=== PATIENT | female | born 1940 | race African-American/Black ===

== ENCOUNTER 2022-09-02 12:19 | Inpatient (IN) | payer OTHER ==
[2022-09-02 13:00] LABS: Hemoglobin 11.8 g/dL (12.0-16.0); Mean Corpuscular HGB CONC 31.1 g/dL (32.0-36.0); Mean Corpuscular Volume 99.7 fl (78.0-98.0); Platelet Count 145 thou/uL (130-400); RBC Distribution Width 13.1 % (11.5-14.5); Red Blood Cell (RBC) Count 3.81 mill/uL (4.20-5.40); White Blood Cell (WBC) Count 9.8 thou/uL (4.8-10.8)
[2022-09-02] MEDS ORDERED: Tenecteplase 50 MG - STEMI KIT ONE (13:18)
[2022-09-02 13:19] LABS: Band 2 % (5-11); Lymphocytes 6 % (21-51); MDiff Complete? YES; Monocytes 12 % (0-10); Neutrophil 79 % (42-75); Platelet Morphology Comment Appears Adequate; RBC Morphology Normal; Reactive Lymphocytes 1 % (0-10)
[2022-09-02 13:21] LABS: ALT (SGPT) 10 U/L (8-55); AST (SGOT) 22 U/L (5-34); Albumin 3.7 g/dL (3.4-4.8); Alkaline Phosphatase 65 U/L (40-110); Anion Gap 14 mmol/L (10-20); BUN (Urea Nitrogen) 29 mg/dL (9.8-20.1); Bilirubin, Total 0.6 mg/dL (0.2-1.2); CK (CPK) 82 U/L (29-168); Calc. Creatinine Clearance 0 mL/min (70-130); Calcium 9.7 mg/dL (7.8-10.44); Carbon Dioxide 24 mmol/L (23-31); Chloride 102 mmol/L (98-107); Estimated GFR 39; Globulin 3.4 g/dL (2.4-3.5); Glucose 112 mg/dL (83-110); Lipase 24 U/L (8-78); Potassium 5.4 mmol/L (3.5-5.1); Protein, Total 7.1 g/dL (5.8-8.1); Sodium 135 mmol/L (136-145)
[2022-09-02 13:51] LABS: CKMB 1.9 ng/mL (0-6.6)
[2022-09-02] MEDS ORDERED: Iopamidol-370 76% 500 ML 1 ML ONE (14:26)
[2022-09-02 14:52] LABS: INR-International Normal Ratio 1.1; PTT 29.1 sec (22.9-36.1); Prothrombin Time 15.1 sec (12.0-14.7)
[2022-09-02 14:57] LABS: Magnesium 1.7 mg/dL (1.6-2.6); Phosphorus 3.1 mg/dL (2.3-4.7)
[2022-09-02] MEDS: Sodium Chloride 0.9% 1,000 ML IV SCH (15:45)
[2022-09-02] MEDS ORDERED: Electrolyte Replacement Protocol 1 EACH FS SCH (15:45)
[2022-09-02] MEDS ORDERED: Senokot S 8.6-50 MG TAB PO PRN (16:32)
[2022-09-02] MEDS ORDERED: Acetaminophen 325 MG TAB PO PRN (16:32)
[2022-09-02] MEDS ORDERED: Ondansetron ODT 4 MG TAB PO PRN (16:32)
[2022-09-02] MEDS ORDERED: Ondansetron PF 4 MG/2 ML Vial IVP PRN (16:32)
[2022-09-02 16:33] VITALS: BMI 33.1
[2022-09-02] MEDS ORDERED: Labetalol HCl 100 MG/20 ML VIAL SLOW IVP PRN (16:36)
[2022-09-02] MEDS ORDERED: niCARdipine 25 MG in Sodium Chloride 0.9% 250 ML 250 ML IVPB PRN (16:36)
[2022-09-02] MEDS ORDERED: hydrALAZINE 20 MG/ML VIAL SLOW IVP PRN (16:36)
[2022-09-02] MEDS ORDERED: Acetaminophen 650 MG Suppository PR PRN (16:36)
[2022-09-02] MEDS ORDERED: Communication Order-Pharmacy FS ONE (16:36)
[2022-09-02] MEDS ORDERED: Famotidine 20 MG TAB PO SCH (21:00)
[2022-09-02] MEDS: Atorvastatin Calcium 40 MG TAB PO SCH (21:17)
[2022-09-02 22:02] LABS: Bilirubin Negative (Negative); Blood, Urine Trace (Negative); Clarity Clear (Clear); Glucose, Urine (Dipstick) Normal (Negative); Ketone, Urine Negative (Negative); Leukocyte Negative Leu/uL (Negative); Nitrite Negative (Negative); Protein, Urine (Dipstick) 20 mg/dL (Neg-Trace); Specific Gravity, Urine 1.037 (1.002-1.036); Squamous Epithelial 0-3 HPF (0-3); WBC/HPF 0-3 HPF (0-3); pH, Urine 6.5 (5.0-9.0)
[2022-09-02 22:14] LABS: Bacteria/HPF 2+ HPF (None Seen)
[2022-09-02 22:15] LABS: Urine Culture Reflex Yes Yes
[2022-09-03] MEDS ORDERED: Furosemide 40 MG/4 ML VIAL SLOW IVP SCH (05:15)
[2022-09-03] MEDS: Sodium Chloride 0.9% 1,000 ML IV SCH (06:06)
[2022-09-03] MEDS ORDERED: FLU VACC QS2022-23(65YR UP)/PF 240 MCG/0.7 ML SYRINGE IM ONE (09:00)
[2022-09-03] MEDS: Famotidine/PF 20 mg/2ml Vial SLOW IVP SCH (10:26)
[2022-09-03] MEDS: guaiFENesin/DM ER PO SCH ×2 (10:27→20:21)
[2022-09-03] MEDS ORDERED: Magnesium 2 GM/50 ML(in water) 2 GM in Premix Bag 1 BAG IVPB SCH (12:30)
[2022-09-03] MEDS ORDERED: Aspirin 325 mg Enteric Coated Tablet PO SCH ×2 (13:00→17:30)
[2022-09-03 13:26] LABS: Hemoglobin 12.9 g/dL (12.0-16.0); Mean Corpuscular HGB CONC 31.2 g/dL (32.0-36.0); Mean Corpuscular Hemoglobin 31.5 pg (27.0-31.0); Platelet Count 139 thou/uL (130-400); RBC Distribution Width 13.1 % (11.5-14.5); Red Blood Cell (RBC) Count 4.12 mill/uL (4.20-5.40); White Blood Cell (WBC) Count 7.1 thou/uL (4.8-10.8)
[2022-09-03 13:40] LABS: ALT (SGPT) 14 U/L (8-55); AST (SGOT) 28 U/L (5-34); Albumin 3.8 g/dL (3.4-4.8); Alkaline Phosphatase 70 U/L (40-110); Anion Gap 11 mmol/L (10-20); BUN (Urea Nitrogen) 25 mg/dL (9.8-20.1); Bilirubin, Total 0.9 mg/dL (0.2-1.2); Calc. Creatinine Clearance 47 mL/min (70-130); Calcium 9.5 mg/dL (7.8-10.44); Carbon Dioxide 31 mmol/L (23-31); Cardiac Risk 2.1 (Less than 4.5); Chloride 97 mmol/L (98-107); Cholesterol 148 mg/dl (< 200 Desired); Estimated GFR 44; Globulin 3.6 g/dL (2.4-3.5); Glucose 103 mg/dL (83-110); HDL Cholesterol 70 mg/dL (>60 Neg Risk); LDL Cholesterol, Calculated 70 mg/dL; Magnesium 1.6 mg/dL (1.6-2.6); Potassium 5.4 mmol/L (3.5-5.1); Protein, Total 7.4 g/dL (5.8-8.1); Sodium 134 mmol/L (136-145); Triglycerides 40 mg/dL (Less than 150)
[2022-09-03 13:59] LABS: Band 3 % (5-11); Eosinophils 1 % (0-10); Lymphocytes 10 % (21-51); MDiff Complete? YES; Macrocytosis SLIGHT = 6-15 cells (100X) (0-5/hpf); Monocytes 16 % (0-10); Neutrophil 68 % (42-75); Platelet Morphology Comment Appears Adequate; Polychromasia SLIGHT = 2-3 cells (100X) (0-2/hpf)
[2022-09-03] MEDS: Enoxaparin Sodium 40 MG/0.4 ML SYRINGE SC SCH (20:17)
[2022-09-03] MEDS: Atorvastatin Calcium 40 MG TAB PO SCH (20:20)
[2022-09-04 08:46] LABS: #Basophils 0.1 thou/uL (0.0-0.2); #Lymphocytes 0.8 thou/uL (1.20-3.40); #Monocytes 0.7 thou/uL (0.11-0.59); #Neutrophils 3.9 thou/uL (1.40-6.50); %Basophils 0.9 % (0.0-1.0); %Eosinophils 0.2 % (0.0-10.0); %Lymphocytes 14.4 % (21.0-51.0); %Neutrophils 71.4 % (42.0-75.0); Hemoglobin 13.5 g/dL (12.0-16.0); Mean Corpuscular HGB CONC 31.3 g/dL (32.0-36.0); Mean Corpuscular Hemoglobin 31.5 pg (27.0-31.0); Mean Platelet Volume 8.1 fL (7.4-10.4); Platelet Count 135 thou/uL (130-400); Red Blood Cell (RBC) Count 4.27 mill/uL (4.20-5.40); White Blood Cell (WBC) Count 5.5 thou/uL (4.8-10.8)
[2022-09-04 09:08] LABS: Anion Gap 16 mmol/L (10-20); BUN (Urea Nitrogen) 29 mg/dL (9.8-20.1); Calc. Creatinine Clearance 50 mL/min (70-130); Calcium 9.4 mg/dL (7.8-10.44); Carbon Dioxide 25 mmol/L (23-31); Chloride 98 mmol/L (98-107); Estimated GFR 47; Glucose 79 mg/dL (83-110); Potassium 5.1 mmol/L (3.5-5.1); Sodium 134 mmol/L (136-145)
[2022-09-04] MEDS: Famotidine/PF 20 mg/2ml Vial SLOW IVP SCH (12:52)
[2022-09-04] MEDS: Aspirin 325 mg Enteric Coated Tablet PO SCH (13:03)
[2022-09-04] MEDS: guaiFENesin/DM ER PO SCH ×2 (13:03→20:28)
[2022-09-04] MEDS: Atorvastatin Calcium 40 MG TAB PO SCH (20:27)
[2022-09-04] MEDS: Enoxaparin Sodium 40 MG/0.4 ML SYRINGE SC SCH (20:28)
[2022-09-05 04:30] LABS: Anion Gap 10 mmol/L (10-20); BUN (Urea Nitrogen) 29 mg/dL (9.8-20.1); Calc. Creatinine Clearance 49 mL/min (70-130); Calcium 9.2 mg/dL (7.8-10.44); Carbon Dioxide 31 mmol/L (23-31); Chloride 100 mmol/L (98-107); Estimated GFR 46; Glucose 103 mg/dL (83-110); Potassium 4.4 mmol/L (3.5-5.1); Sodium 137 mmol/L (136-145)
[2022-09-05] MEDS: Aspirin 325 mg Enteric Coated Tablet PO SCH (08:37)
[2022-09-05] MEDS: guaiFENesin/DM ER PO SCH (08:37)
[2022-09-05] MEDS: Famotidine/PF 20 mg/2ml Vial SLOW IVP SCH (08:38)
[2022-09-05 08:58] LABS: Magnesium 1.9 mg/dL (1.6-2.6)
[2022-09-05] MEDS ORDERED: Magnesium 2 GM/50 ML(in water) 2 GM in Premix Bag 1 BAG IVPB SCH (09:45)
[2022-09-05] MEDS ORDERED: Apixaban 5 MG TAB PO SCH (13:45)
[2022-09-05] MEDS ORDERED: Metoprolol Tartrate 25 MG TAB PO SCH (13:45)
[2022-09-05] MEDS: Atorvastatin Calcium 40 MG TAB PO SCH (20:41)
[2022-09-05] MEDS: Metoprolol Tartrate 25 MG TAB PO SCH (20:41)
[2022-09-05] MEDS: Apixaban 5 MG TAB PO SCH (20:41)
[2022-09-06] MEDS ORDERED: Magnesium 2 GM/50 ML(in water) 2 GM in Premix Bag 1 BAG IVPB SCH (08:00)
[2022-09-06] MEDS: Aspirin 81 mg Enteric Coated Tablet PO SCH (08:08)
[2022-09-06] MEDS: Metoprolol Tartrate 25 MG TAB PO SCH ×2 (08:08→20:32)
[2022-09-06] MEDS: Apixaban 5 MG TAB PO SCH ×2 (08:09→20:32)
[2022-09-06] MEDS: Atorvastatin Calcium 40 MG TAB PO SCH (20:32)
[2022-09-07 06:03] LABS: ALT (SGPT) 12 U/L (8-55); AST (SGOT) 26 U/L (5-34); Albumin 3.4 g/dL (3.4-4.8); Alkaline Phosphatase 62 U/L (40-110); Anion Gap 14 mmol/L (10-20); BUN (Urea Nitrogen) 29 mg/dL (9.8-20.1); Bilirubin, Total 1.1 mg/dL (0.2-1.2); Calc. Creatinine Clearance 51 mL/min (70-130); Carbon Dioxide 24 mmol/L (23-31); Chloride 101 mmol/L (98-107); Estimated GFR 54; Globulin 3.8 g/dL (2.4-3.5); Glucose 111 mg/dL (83-110); Magnesium 2.1 mg/dL (1.6-2.6); Potassium 4.4 mmol/L (3.5-5.1); Protein, Total 7.2 g/dL (5.8-8.1); Sodium 135 mmol/L (136-145)
[2022-09-07 06:32] LABS: Eosinophils 1 % (0-10); Hemoglobin 12.8 g/dL (12.0-16.0); Lymphocytes 31 % (21-51); MDiff Complete? YES; Mean Corpuscular HGB CONC 31.3 g/dL (32.0-36.0); Mean Corpuscular Hemoglobin 30.9 pg (27.0-31.0); Mean Corpuscular Volume 98.9 fl (78.0-98.0); Mean Platelet Volume 8.7 fL (7.4-10.4); Monocytes 9 % (0-10); Neutrophil 59 % (42-75); Platelet Count 152 thou/uL (130-400); Red Blood Cell (RBC) Count 4.15 mill/uL (4.20-5.40); White Blood Cell (WBC) Count 4.4 thou/uL (4.8-10.8)
[2022-09-07] MEDS: Apixaban 5 MG TAB PO SCH (08:32)
[2022-09-07] MEDS: Aspirin 81 mg Enteric Coated Tablet PO SCH (08:32)
[2022-09-07] MEDS ORDERED: Metoprolol Tartrate 25 MG TAB PO SCH (09:00)
[2022-09-07 16:50] VITALS: BP 132/75; TEMP 98.1
== END 2022-09-07 17:50 | DRG 61 ==
LOC: ERS 12:19 → CCU 14:31 → NEURO 09-06 21:27
PROVIDERS: ADMIT Internal Medicine; ATTEND Internal Medicine
DX: I63.311 Cerebral infarction due to thrombosis of right middle cerebral artery (principal); J69.0 Pneumonitis due to inhalation of food and vomit; J96.01 Acute respiratory failure with hypoxia; E87.1 Hypo-osmolality and hyponatremia; G81.94 Hemiplegia, unspecified affecting left nondominant side; Z20.822 Contact with and (suspected) exposure to COVID-19; I48.0 Paroxysmal atrial fibrillation; E66.9 Obesity, unspecified; I12.9 Hypertensive chronic kidney disease with stage 1 through stage 4 chronic kidney disease, or unspecified chronic kidney disease; N18.30 Chronic kidney disease, stage 3 unspecified; E87.5 Hyperkalemia; E83.42 Hypomagnesemia; D63.1 Anemia in chronic kidney disease; E78.2 Mixed hyperlipidemia; R47.1 Dysarthria and anarthria; R53.81 Other malaise; R29.716 NIHSS score 16; R29.810 Facial weakness; F17.210 Nicotine dependence, cigarettes, uncomplicated; Z79.82 Long term (current) use of aspirin; Z86.16 Personal history of COVID-19; Z63.5 Disruption of family by separation and divorce; Z68.30 Body mass index [BMI] 30.0-30.9, adult
CPT/HCPCS: 36415; 70450; 70496; 70498; 70551; 71045; 74230; 80048; 80053; 80061; 81001; 82550; 82553; 83690; 83735; 83880; 84100; 84484; 85025; 85610; 85730; 87086; 93005; 93306; 96374; J1650; J1940; J3101; J3475; J7050; J7620; Q9967; S0028; U0003; U0005

== ENCOUNTER 2025-07-31 15:54 | Inpatient (IN) | payer MEDICARE, OTHER ==
[2025-07-31] MEDS ORDERED: CALCIUM GLUC 1 GM/NS 50 ML IV Bag ONE (15:58)
[2025-07-31] MEDS ORDERED: Etomidate 40 MG (20 mL) VIAL ONE (16:18)
[2025-07-31] MEDS ORDERED: KETAMINE 100 MG/ML (5ML VIAL) ONE (16:29)
[2025-07-31 16:53] LABS: #Basophils Less than 0.03 10x3/uL (0.0-0.2); #Eosinophils 0.03 10x3/uL (0.0-0.7); #Monocytes 0.40 10x3/uL (0.11-0.59); #Neutrophils 2.66 10x3/uL (1.40-6.50); %Basophils 0.3 % (0.0-1.0); %Eosinophils 0.8 % (0.0-10.0); %Lymphocytes 19.0 % (21.0-51.0); %Monocytes 10.4 % (0.0-10.0); %Neutrophils 69.0 % (42.0-75.0); Hematocrit 20.4 % (36.0-47.0); Hemoglobin 5.3 g/dL (12.0-16.0); Mean Corpuscular Hemoglobin 21.8 pg (27.0-31.0); Mean Corpuscular Volume 84.0 fL (78.0-98.0); Platelet Count 246 10x3/uL (130-400); Red Blood Cell (RBC) Count 2.43 mill/uL (4.20-5.40); White Blood Cell (WBC) Count 3.85 10x3/uL (4.8-10.8)
[2025-07-31 16:53] LABS: Actual Bicarbonate (HCO3a) 18.9 mEq/L (22-28); Analyzer IN Cardio ER; Base Excess (BEa) -7.6 mEq/L (-2.0 to +3.0); CO2 Tension 43.8 mmHg (35.0-45.0); Calcium, Ionized (arterial) 1.37 mmol/L (1.12-1.30); Hematocrit-ABG 18 % (36.0-47.0); Hemoglobin (Hb) 6.1 g/dL (12.0-16.0); O2 Tension (PaO2), arterial 381.6 mmHg (> 60.0); Potassium - ABG Lab 3.34 mmol/L (3.70-5.30); pH, Arterial 7.253 (7.35-7.45)
[2025-07-31 17:00] LABS: ALT (SGPT) Less than 7 U/L (Less than 34); AST (SGOT) 21 U/L (11-34); Albumin 3.3 g/dL (3.1-4.5); Alkaline Phosphatase 54 U/L (40-110); Anion Gap 21 mmol/L (10-20); BUN (Urea Nitrogen) 40 mg/dL (9.8-20.1); Bilirubin, Total 0.4 mg/dL (0.3-1.2); Calc. Creatinine Clearance 0 mL/min (70-130); Calcium 9.0 mg/dL (7.8-10.44); Carbon Dioxide 18 mmol/L (23-31); Chloride 107 mmol/L (98-107); Globulin 3.4 g/dL (2.4-3.5); Glucose 148 mg/dL (83-110); Magnesium 1.7 mg/dL (1.6-2.6); Potassium 4.2 mmol/L (3.5-5.1); Sodium 142 mmol/L (136-145)
[2025-07-31 17:03] LABS: INR-International Normal Ratio 2.1; PTT 35.2 sec (22.9-36.1); Prothrombin Time 23.8 sec (12.0-14.7)
[2025-07-31] MEDS ORDERED: Lidocaine 1% (PF) 30 ML VIAL ONE (17:11)
[2025-07-31 17:23] LABS: Lipase 29 U/L (8-78)
[2025-07-31 17:25] LABS: Acetaminophen Less than 10 mcg/mL (Less than 10); Salicylate Less than 8.0 mg/dL (Less than 8.0)
[2025-07-31 17:33] LABS: CAUTI Indications for Culture Alt mental st,lethar; Glucose, Urine (Dipstick) Normal (Negative); Leukocyte 500 Leu/uL (Negative); Protein, Urine (Dipstick) 100 mg/dL (Neg-Trace); RBC/HPF None Seen HPF (0-3); Specific Gravity, Urine 1.024 (1.002-1.036)
[2025-07-31 17:34] LABS: Bacteria/HPF 1+ HPF (None Seen); Urine Culture Reflex No No
[2025-07-31 17:36] LABS: Cocaine Metabolite Screen Negative (Negative); THC/Cannabinoid Screen Negative (Negative); Tricyclic Screen PRELIM POSITIVE (Negative)
[2025-07-31 17:47] LABS: Free T4 (Free Thyroxine) 1.09 ng/dL (0.70-1.48); Thyroid Stimulating Hormone 4.2171 uIU/mL (0.35-4.94)
[2025-07-31] MEDS ORDERED: Ondansetron PF 4 MG/2 ML Vial IVP PRN (18:14)
[2025-07-31] MEDS ORDERED: Rocuronium Bromide 10 MG/ML (10ML VIAL) ONE (18:16)
[2025-07-31] MEDS ORDERED: Propofol BOLUS 1,000 MG/100 ML VIAL IV PRN (19:00)
[2025-07-31] MEDS ORDERED: Fentanyl BOLUS 100 ML IVPB PRN (19:00)
[2025-07-31 19:23] LABS: Actual Bicarbonate (HCO3a) 18.8 mEq/L (22-28); Base Excess (BEa) -5.9 mEq/L (-2.0 to +3.0); CO2 Tension 33.1 mmHg (35.0-45.0); Calcium, Ionized (arterial) 1.26 mmol/L (1.12-1.30); Hematocrit-ABG 17 % (36.0-47.0); O2 Tension (PaO2), arterial 136.3 mmHg (> 60.0); Potassium - ABG Lab 3.24 mmol/L (3.70-5.30); pH, Arterial 7.373 (7.35-7.45)
[2025-07-31 19:26] LABS: ALV-art Gradient 107.525 mmHg (0-20); Hemoglobin (Hb) 5.8 g/dL (12.0-16.0); Puncture Site Right Radial artery
[2025-07-31] MEDS ORDERED: Pantoprazole 40 MG VIAL IVP SCH (20:00)
[2025-07-31] MEDS: Glucagon 1 MG/ML KIT IVP SCH (20:48)
[2025-07-31] MEDS: Ventilator Sedation Protocol 1 EACH FS ONE (20:48)
[2025-07-31] MEDS: cefTRIAXone\\ROCEPHIN 1 GM in Sodium Chloride 0.9% 100 ML IVPB SCH (20:48)
[2025-07-31] MEDS: Pantoprazole 80 MG, Admixture Fee 1 EACH in Sodium Chloride 0.9% 100 ML IVPB SCH (20:49)
[2025-07-31] MEDS: Magnesium 2 GM/50 ML(in water) Premix IVPB SCH (20:50)
[2025-07-31] MEDS: Pantoprazole 40 MG VIAL IVP SCH (21:50)
[2025-07-31 22:26] LABS: #Basophils Less than 0.03 10x3/uL (0.0-0.2); #Eosinophils Less than 0.03 10x3/uL (0.0-0.7); #Monocytes 0.60 10x3/uL (0.11-0.59); #Neutrophils 10.90 10x3/uL (1.40-6.50); %Basophils 0.2 % (0.0-1.0); %Eosinophils 0.0 % (0.0-10.0); %Lymphocytes 3.3 % (21.0-51.0); %Monocytes 5.0 % (0.0-10.0); %Neutrophils 91.1 % (42.0-75.0); Hematocrit 29.3 % (36.0-47.0); Hemoglobin 8.8 g/dL (12.0-16.0); Mean Corpuscular Hemoglobin 25.8 pg (27.0-31.0); Mean Corpuscular Volume 85.9 fL (78.0-98.0); Platelet Count 204 10x3/uL (130-400); Red Blood Cell (RBC) Count 3.41 mill/uL (4.20-5.40); White Blood Cell (WBC) Count 11.97 10x3/uL (4.8-10.8)
[2025-07-31] MEDS: Lidocaine 1% w/Epinephrine 1:100K 20 ML VIAL ONE (23:35)
[2025-07-31 23:54] VITALS: BMI 21.4
[2025-08-01] MEDS ORDERED: NOREPINEPHRINE 8 MG/250 ML-D5W 250 ML IVPB SCH (01:45)
[2025-08-01] MEDS: Albumin 25% 25 GM (100 mL) BOT IVPB SCH (02:07)
[2025-08-01] MEDS: Norepinephrine 8 MG/0.9% NS 250 ML IVPB SCH (02:07)
[2025-08-01 02:33] LABS: Hematocrit 26.8 % (36.0-47.0); Hemoglobin 8.2 g/dL (12.0-16.0); Platelet Count 188 10x3/uL (130-400)
[2025-08-01 02:33] LABS: #Basophils Less than 0.03 10x3/uL (0.0-0.2); #Eosinophils Less than 0.03 10x3/uL (0.0-0.7); #Monocytes 0.45 10x3/uL (0.11-0.59); #Neutrophils 12.66 10x3/uL (1.40-6.50); %Basophils 0.1 % (0.0-1.0); %Eosinophils 0.0 % (0.0-10.0); %Lymphocytes 3.4 % (21.0-51.0); %Monocytes 3.3 % (0.0-10.0); %Neutrophils 92.9 % (42.0-75.0); Hematocrit 27.0 % (36.0-47.0); Hemoglobin 8.2 g/dL (12.0-16.0); Mean Corpuscular Hemoglobin 25.7 pg (27.0-31.0); Mean Corpuscular Volume 84.6 fL (78.0-98.0); Platelet Count 194 10x3/uL (130-400); Red Blood Cell (RBC) Count 3.19 mill/uL (4.20-5.40); White Blood Cell (WBC) Count 13.62 10x3/uL (4.8-10.8)
[2025-08-01 03:22] LABS: ALT (SGPT) 16 U/L (Less than 34); AST (SGOT) 27 U/L (11-34); Albumin 3.6 g/dL (3.1-4.5); Alkaline Phosphatase 57 U/L (40-110); Anion Gap 22 mmol/L (10-20); BUN (Urea Nitrogen) 38 mg/dL (9.8-20.1); Bilirubin, Total 1.3 mg/dL (0.3-1.2); Calc. Creatinine Clearance 17 mL/min (70-130); Calcium 9.6 mg/dL (7.8-10.44); Carbon Dioxide 16 mmol/L (23-31); Chloride 105 mmol/L (98-107); Globulin 3.1 g/dL (2.4-3.5); Glucose 268 mg/dL (83-110); Magnesium 2.3 mg/dL (1.6-2.6); Potassium 3.1 mmol/L (3.5-5.1); Sodium 140 mmol/L (136-145)
[2025-08-01] MEDS ORDERED: Vancomycin Dose by Levels Sliding Scale (Wt <71) FS SCH (04:15)
[2025-08-01] MEDS: Potassium Chloride 20 MEQ in Premix 1 BAG IVPB SCH (04:22)
[2025-08-01 04:23] LABS: CAUTI Indications for Culture Alt mental st,lethar; Glucose, Urine (Dipstick) Normal (Negative); Leukocyte 25 Leu/uL (Negative); Protein, Urine (Dipstick) 70 mg/dL (Neg-Trace); RBC/HPF 21-50 HPF (0-3); Specific Gravity, Urine 1.020 (1.002-1.036); WBC/HPF None Seen HPF (0-3)
[2025-08-01 04:32] LABS: Bacteria/HPF None Seen HPF (None Seen)
[2025-08-01 04:33] LABS: Urine Culture Reflex No No
[2025-08-01] MEDS: Vancomycin 1.25 GM / NS 250 ML VIAL-2-BAG IVPB SCH (05:00)
[2025-08-01 07:27] LABS: Hematocrit 22.3 % (36.0-47.0); Hemoglobin 7.1 g/dL (12.0-16.0); Platelet Count 193 10x3/uL (130-400)
[2025-08-01] MEDS ORDERED: PHENYLEPHRINE-NS 100 MCG/ML 10 ML SYRINGE ONE ×2 (07:27→11:42)
[2025-08-01] MEDS ORDERED: Rocuronium Bromide 10 MG/ML (10ML VIAL) ONE ×2 (07:27→11:43)
[2025-08-01] MEDS ORDERED: EPINEPHrine 1 MG/10 ML Abboject SYRINGE ONE (07:54)
[2025-08-01] MEDS ORDERED: Pantoprazole 40 MG VIAL IVP SCH (09:00)
[2025-08-01] MEDS ORDERED: PROPOFOL 20 ML ONE (11:43)
[2025-08-01] MEDS: NOREPINEPHRINE 8 MG/250 ML-D5W 250 ML ONE (14:05)
[2025-08-01 14:52] LABS: Actual Bicarbonate (HCO3a) 21.5 mEq/L (22-28); Base Excess (BEa) -3.0 mEq/L (-2.0 to +3.0); CO2 Tension 36.0 mmHg (35.0-45.0); Calcium, Ionized (arterial) 1.21 mmol/L (1.12-1.30); Hematocrit-ABG 32 % (36.0-47.0); Hemoglobin (Hb) 11.0 g/dL (12.0-16.0); O2 Tension (PaO2), arterial 333.7 mmHg (> 60.0); Potassium - ABG Lab 4.50 mmol/L (3.70-5.30); pH, Arterial 7.393 (7.35-7.45)
[2025-08-01 14:55] LABS: Hematocrit 30.3 % (36.0-47.0); Hemoglobin 9.7 g/dL (12.0-16.0); Platelet Count 160 10x3/uL (130-400)
[2025-08-01 14:55] LABS: ALV-art Gradient 334.300 mmHg (0-20); Puncture Site Left Brachial artery
[2025-08-01] MEDS: Mupirocin 1 GM TUBE NASAL DECOLONIZATION TP SCH (16:14)
[2025-08-01] MEDS: Mupirocin 1 GM TUBE NASAL DECOLOIZATION TP SCH (21:41)
[2025-08-02 04:39] LABS: Hematocrit 27.5 % (36.0-47.0); Hemoglobin 8.9 g/dL (12.0-16.0); Mean Corpuscular Hemoglobin 26.4 pg (27.0-31.0); Mean Corpuscular Volume 81.6 fL (78.0-98.0); Platelet Count 158 10x3/uL (130-400); Red Blood Cell (RBC) Count 3.37 mill/uL (4.20-5.40); White Blood Cell (WBC) Count 10.84 10x3/uL (4.8-10.8)
[2025-08-02 04:51] LABS: ALT (SGPT) 7 U/L (Less than 34); AST (SGOT) 27 U/L (11-34); Albumin 2.9 g/dL (3.1-4.5); Alkaline Phosphatase 52 U/L (40-110); Anion Gap 17 mmol/L (10-20); BUN (Urea Nitrogen) 40 mg/dL (9.8-20.1); Bilirubin, Total 1.1 mg/dL (0.3-1.2); Calc. Creatinine Clearance 18 mL/min (70-130); Calcium 9.1 mg/dL (7.8-10.44); Carbon Dioxide 20 mmol/L (23-31); Chloride 108 mmol/L (98-107); Globulin 2.9 g/dL (2.4-3.5); Glucose 123 mg/dL (83-110); Magnesium 1.9 mg/dL (1.6-2.6); Potassium 4.6 mmol/L (3.5-5.1); Sodium 140 mmol/L (136-145)
[2025-08-02 04:59] LABS: Anisocytosis SLIGHT = 6-15 cells HPF (0-5); Nucleated RBC (Manual Ct) 6 % (0); Platelet Adequacy Comment Platelets Normal; Poikilocytosis SLIGHT = 6-15 cells HPF (0-5); Polychromasia SLIGHT = 2-3 cells HPF (0-2)
[2025-08-02 05:11] LABS: Vancomycin, Trough Less than 1.4 ug/mL
[2025-08-02] MEDS: Vancomycin 1 GM in Premix 1 BAG IVPB SCH (08:16)
[2025-08-02] MEDS: Pantoprazole 40 MG VIAL IVP SCH (08:17)
[2025-08-02] MEDS: DC Sedation Protocol FS ONE (16:04)
[2025-08-03 04:20] LABS: Hematocrit 22.9 % (36.0-47.0); Hemoglobin 7.1 g/dL (12.0-16.0); Mean Corpuscular Hemoglobin 26.4 pg (27.0-31.0); Mean Corpuscular Volume 85.1 fL (78.0-98.0); Platelet Count 118 10x3/uL (130-400); Red Blood Cell (RBC) Count 2.69 mill/uL (4.20-5.40); White Blood Cell (WBC) Count 9.98 10x3/uL (4.8-10.8)
[2025-08-03 04:27] LABS: ALT (SGPT) Less than 7 U/L (Less than 34); AST (SGOT) 23 U/L (11-34); Albumin 2.5 g/dL (3.1-4.5); Alkaline Phosphatase 47 U/L (40-110); Anion Gap 12 mmol/L (10-20); BUN (Urea Nitrogen) 44 mg/dL (9.8-20.1); Bilirubin, Total 0.6 mg/dL (0.3-1.2); Calc. Creatinine Clearance 20 mL/min (70-130); Calcium 8.7 mg/dL (7.8-10.44); Carbon Dioxide 23 mmol/L (23-31); Chloride 107 mmol/L (98-107); Globulin 2.9 g/dL (2.4-3.5); Glucose 117 mg/dL (83-110); Magnesium 1.9 mg/dL (1.6-2.6); Potassium 4.7 mmol/L (3.5-5.1); Sodium 137 mmol/L (136-145)
[2025-08-03 04:42] LABS: Anisocytosis SLIGHT = 6-15 cells HPF (0-5); Burr Cells SLIGHT = 2-5 cells HPF (0-1); Nucleated RBC (Manual Ct) 1 % (0); Plasma Cells 1 % (0-0); Platelet Adequacy Comment Platelets Decreased; Poikilocytosis SLIGHT = 6-15 cells HPF (0-5); Schistocytes SLIGHT = 2-5 cells HPF (0-1); Smudge Cells 1.9 %
[2025-08-03 08:25] LABS: Vancomycin, Trough 9.1 ug/mL
[2025-08-04 07:37] LABS: Anion Gap 13 mmol/L (10-20); BUN (Urea Nitrogen) 36 mg/dL (9.8-20.1); Calc. Creatinine Clearance 33 mL/min (70-130); Calcium 8.6 mg/dL (7.8-10.44); Carbon Dioxide 22 mmol/L (23-31); Chloride 107 mmol/L (98-107); Glucose 90 mg/dL (83-110); Potassium 4.4 mmol/L (3.5-5.1); Sodium 138 mmol/L (136-145)
[2025-08-04 07:56] LABS: #Basophils Less than 0.03 10x3/uL (0.0-0.2); #Eosinophils 0.06 10x3/uL (0.0-0.7); #Monocytes 0.81 10x3/uL (0.11-0.59); #Neutrophils 7.26 10x3/uL (1.40-6.50); %Basophils 0.1 % (0.0-1.0); %Eosinophils 0.7 % (0.0-10.0); %Lymphocytes 7.1 % (21.0-51.0); %Monocytes 9.2 % (0.0-10.0); %Neutrophils 82.2 % (42.0-75.0); Hematocrit 28.2 % (36.0-47.0); Hemoglobin 8.4 g/dL (12.0-16.0); Mean Corpuscular Hemoglobin 25.7 pg (27.0-31.0); Mean Corpuscular Volume 86.2 fL (78.0-98.0); Platelet Count 103 10x3/uL (130-400); Red Blood Cell (RBC) Count 3.27 mill/uL (4.20-5.40); White Blood Cell (WBC) Count 8.83 10x3/uL (4.8-10.8)
[2025-08-04 08:49] LABS: Anisocytosis SLIGHT = 6-15 cells HPF (0-5); Burr Cells MARKED = >16 cells HPF (0-1); Platelet Adequacy Comment Platelets Decreased; Poikilocytosis SLIGHT = 6-15 cells HPF (0-5); Polychromasia MARKED = >4 cells HPF (0-2); Schistocytes SLIGHT = 2-5 cells HPF (0-1)
[2025-08-04 13:15] VITALS: BMI 22.4
[2025-08-04 13:45] LABS: Vancomycin, Trough 11.1 ug/mL
[2025-08-05 02:54] LABS: #Basophils Less than 0.03 10x3/uL (0.0-0.2); #Eosinophils 0.13 10x3/uL (0.0-0.7); #Monocytes 1.06 10x3/uL (0.11-0.59); #Neutrophils 7.23 10x3/uL (1.40-6.50); %Basophils 0.2 % (0.0-1.0); %Eosinophils 1.4 % (0.0-10.0); %Lymphocytes 7.1 % (21.0-51.0); %Monocytes 11.6 % (0.0-10.0); %Neutrophils 79.3 % (42.0-75.0); Hematocrit 28.2 % (36.0-47.0); Hemoglobin 8.4 g/dL (12.0-16.0); Mean Corpuscular Hemoglobin 25.8 pg (27.0-31.0); Mean Corpuscular Volume 86.8 fL (78.0-98.0); Platelet Count 109 10x3/uL (130-400); Red Blood Cell (RBC) Count 3.25 mill/uL (4.20-5.40); White Blood Cell (WBC) Count 9.13 10x3/uL (4.8-10.8)
[2025-08-05 03:03] LABS: Vancomycin, Random 13.3 ug/mL (See Comment)
[2025-08-05 03:05] LABS: Anion Gap 15 mmol/L (10-20); BUN (Urea Nitrogen) 32 mg/dL (9.8-20.1); Calc. Creatinine Clearance 38 mL/min (70-130); Calcium 9.1 mg/dL (7.8-10.44); Carbon Dioxide 22 mmol/L (23-31); Chloride 108 mmol/L (98-107); Glucose 103 mg/dL (83-110); Potassium 4.6 mmol/L (3.5-5.1); Sodium 140 mmol/L (136-145)
[2025-08-05] MEDS: Acetaminophen 325 MG TAB PER TUBE PRN (08:28)
[2025-08-05] MEDS: Metoprolol Succinate XL 50 MG ER.TAB PO SCH (09:15)
[2025-08-05] MEDS: Vancomycin 1 GM Premix Bag IVPB SCH (11:17)
[2025-08-06 04:18] LABS: #Basophils 0.04 10x3/uL (0.0-0.2); #Eosinophils 0.15 10x3/uL (0.0-0.7); #Monocytes 1.23 10x3/uL (0.11-0.59); #Neutrophils 8.39 10x3/uL (1.40-6.50); %Basophils 0.4 % (0.0-1.0); %Eosinophils 1.4 % (0.0-10.0); %Lymphocytes 5.7 % (21.0-51.0); %Monocytes 11.8 % (0.0-10.0); %Neutrophils 80.2 % (42.0-75.0); Hematocrit 29.4 % (36.0-47.0); Hemoglobin 8.9 g/dL (12.0-16.0); Mean Corpuscular Hemoglobin 26.0 pg (27.0-31.0); Mean Corpuscular Volume 86.0 fL (78.0-98.0); Platelet Count 127 10x3/uL (130-400); Red Blood Cell (RBC) Count 3.42 mill/uL (4.20-5.40); White Blood Cell (WBC) Count 10.46 10x3/uL (4.8-10.8)
[2025-08-06 04:52] LABS: ALT (SGPT) 8 U/L (Less than 34); AST (SGOT) 27 U/L (11-34); Albumin 2.7 g/dL (3.1-4.5); Alkaline Phosphatase 58 U/L (40-110); Anion Gap 14 mmol/L (10-20); BUN (Urea Nitrogen) 24 mg/dL (9.8-20.1); Bilirubin, Total 0.9 mg/dL (0.3-1.2); Calc. Creatinine Clearance 43 mL/min (70-130); Calcium 9.5 mg/dL (7.8-10.44); Carbon Dioxide 26 mmol/L (23-31); Chloride 104 mmol/L (98-107); Globulin 3.5 g/dL (2.4-3.5); Glucose 104 mg/dL (83-110); Potassium 4.5 mmol/L (3.5-5.1); Sodium 139 mmol/L (136-145)
[2025-08-06 05:03] LABS: Vancomycin, Random 15.6 ug/mL (See Comment)
[2025-08-06] MEDS: Vancomycin 1 GM in Premix 1 BAG IVPB SCH (08:30)
[2025-08-06] MEDS ORDERED: hydrALAZINE 20 MG/ML VIAL SLOW IVP PRN (12:33)
[2025-08-07 04:50] LABS: #Basophils 0.04 10x3/uL (0.0-0.2); #Eosinophils 0.20 10x3/uL (0.0-0.7); #Monocytes 1.21 10x3/uL (0.11-0.59); #Neutrophils 5.50 10x3/uL (1.40-6.50); %Basophils 0.5 % (0.0-1.0); %Eosinophils 2.6 % (0.0-10.0); %Lymphocytes 9.4 % (21.0-51.0); %Monocytes 15.7 % (0.0-10.0); %Neutrophils 71.2 % (42.0-75.0); Hematocrit 27.7 % (36.0-47.0); Hemoglobin 8.3 g/dL (12.0-16.0); Mean Corpuscular Hemoglobin 25.8 pg (27.0-31.0); Mean Corpuscular Volume 86.0 fL (78.0-98.0); Platelet Count 139 10x3/uL (130-400); Red Blood Cell (RBC) Count 3.22 mill/uL (4.20-5.40); White Blood Cell (WBC) Count 7.73 10x3/uL (4.8-10.8)
[2025-08-07 05:04] LABS: ALT (SGPT) Less than 7 U/L (Less than 34); AST (SGOT) 25 U/L (11-34); Albumin 2.6 g/dL (3.1-4.5); Alkaline Phosphatase 57 U/L (40-110); Anion Gap 13 mmol/L (10-20); BUN (Urea Nitrogen) 18 mg/dL (9.8-20.1); Bilirubin, Total 0.8 mg/dL (0.3-1.2); Calc. Creatinine Clearance 50 mL/min (70-130); Calcium 9.3 mg/dL (7.8-10.44); Carbon Dioxide 26 mmol/L (23-31); Chloride 102 mmol/L (98-107); Globulin 3.4 g/dL (2.4-3.5); Glucose 111 mg/dL (83-110); Potassium 4.1 mmol/L (3.5-5.1); Sodium 137 mmol/L (136-145)
[2025-08-08 04:53] LABS: #Basophils 0.04 10x3/uL (0.0-0.2); #Eosinophils 0.13 10x3/uL (0.0-0.7); #Monocytes 0.94 10x3/uL (0.11-0.59); #Neutrophils 4.72 10x3/uL (1.40-6.50); %Basophils 0.6 % (0.0-1.0); %Eosinophils 2.0 % (0.0-10.0); %Lymphocytes 11.0 % (21.0-51.0); %Monocytes 14.2 % (0.0-10.0); %Neutrophils 71.4 % (42.0-75.0); Hematocrit 29.4 % (36.0-47.0); Hemoglobin 8.7 g/dL (12.0-16.0); Mean Corpuscular Hemoglobin 25.7 pg (27.0-31.0); Mean Corpuscular Volume 86.7 fL (78.0-98.0); Platelet Count 170 10x3/uL (130-400); Red Blood Cell (RBC) Count 3.39 mill/uL (4.20-5.40); White Blood Cell (WBC) Count 6.61 10x3/uL (4.8-10.8)
[2025-08-08 05:09] LABS: ALT (SGPT) 7 U/L (Less than 34); AST (SGOT) 22 U/L (11-34); Albumin 2.7 g/dL (3.1-4.5); Alkaline Phosphatase 56 U/L (40-110); Anion Gap 16 mmol/L (10-20); BUN (Urea Nitrogen) 16 mg/dL (9.8-20.1); Bilirubin, Total 0.8 mg/dL (0.3-1.2); Calc. Creatinine Clearance 50 mL/min (70-130); Calcium 9.6 mg/dL (7.8-10.44); Carbon Dioxide 27 mmol/L (23-31); Chloride 101 mmol/L (98-107); Globulin 3.5 g/dL (2.4-3.5); Glucose 105 mg/dL (83-110); Potassium 4.0 mmol/L (3.5-5.1); Sodium 140 mmol/L (136-145)
[2025-08-08 17:03] VITALS: BP 163/79; TEMP 98.1
== END 2025-08-08 21:15 | disposition home or self-care (01) | DRG 981 ==
LOC: ERS 15:54 → SDC/OP 17:33 → CCU 18:14 → 2NO 08-05 05:00
PROVIDERS: ADMIT Internal Medicine Cardiovascular Disease; ATTEND Family Medicine
PROC: 4A133R1 Monitoring of Arterial Saturation, Peripheral, Percutaneous Approach (ICD-10-PCS; principal; 2025-07-31)
PROC: 0BH17EZ Insertion of Endotracheal Airway into Trachea, Via Natural or Artificial Opening (ICD-10-PCS; 2025-07-31)
PROC: 06HY33Z Insertion of Infusion Device into Lower Vein, Percutaneous Approach (ICD-10-PCS; 2025-07-31)
PROC: 5A1223Z Performance of Cardiac Pacing, Continuous (ICD-10-PCS; 2025-07-31)
PROC: 5A1945Z Respiratory Ventilation, 24-96 Consecutive Hours (ICD-10-PCS; 2025-07-31)
PROC: 30233L1 Transfusion of Nonautologous Fresh Plasma into Peripheral Vein, Percutaneous Approach (ICD-10-PCS; 2025-07-31)
PROC: 30233N1 Transfusion of Nonautologous Red Blood Cells into Peripheral Vein, Percutaneous Approach (ICD-10-PCS; 2025-07-31)
PROC: 0W9930Z Drainage of Right Pleural Cavity with Drainage Device, Percutaneous Approach (ICD-10-PCS; 2025-07-31)
PROC: 0DH63UZ Insertion of Feeding Device into Stomach, Percutaneous Approach (ICD-10-PCS; 2025-07-31)
PROC: XX20X89 Monitoring of Brain Electrical Activity, Computer-aided Detection and Notification, New Technology Group 9 (ICD-10-PCS; 2025-08-01)
PROC: 0DJ08ZZ Inspection of Upper Intestinal Tract, Via Natural or Artificial Opening Endoscopic (ICD-10-PCS; 2025-08-01)
PROC: 0B9 Respiratory System, Drainage (ICD-10-PCS; 2025-08-01)
PROC: 0BC Respiratory System, Extirpation (ICD-10-PCS; 2025-08-01)
PROC: 3E03329 Introduction of Other Anti-infective into Peripheral Vein, Percutaneous Approach (ICD-10-PCS; 2025-08-01)
PROC: 3E033XZ Introduction of Vasopressor into Peripheral Vein, Percutaneous Approach (ICD-10-PCS; 2025-08-01)
PROC: 0DCP8ZZ Extirpation of Matter from Rectum, Via Natural or Artificial Opening Endoscopic (ICD-10-PCS; 2025-08-01)
PROC: 0W9900Z Drainage of Right Pleural Cavity with Drainage Device, Open Approach (ICD-10-PCS; 2025-08-01)
DX: R00.1 Bradycardia, unspecified (principal); G93.41 Metabolic encephalopathy; J96.00 Acute respiratory failure, unspecified whether with hypoxia or hypercapnia; N17.9 Acute kidney failure, unspecified; K62.6 Ulcer of anus and rectum; D62 Acute posthemorrhagic anemia; E87.20 Acidosis, unspecified; K91.71 Accidental puncture and laceration of a digestive system organ or structure during a digestive system procedure; K62.5 Hemorrhage of anus and rectum; J94.2 Hemothorax; J93.82 Other air leak; I48.19 Other persistent atrial fibrillation; I48.92 Unspecified atrial flutter; Z51.5 Encounter for palliative care; I95.9 Hypotension, unspecified; E78.5 Hyperlipidemia, unspecified; I12.9 Hypertensive chronic kidney disease with stage 1 through stage 4 chronic kidney disease, or unspecified chronic kidney disease; N18.30 Chronic kidney disease, stage 3 unspecified; Z86.73 Personal history of transient ischemic attack (TIA), and cerebral infarction without residual deficits; T68.XXXA Hypothermia, initial encounter; I27.20 Pulmonary hypertension, unspecified; I07.1 Rheumatic tricuspid insufficiency; Z79.01 Long term (current) use of anticoagulants; Z79.899 Other long term (current) drug therapy; Z53.8 Procedure and treatment not carried out for other reasons; K62.89 Other specified diseases of anus and rectum; K57.30 Diverticulosis of large intestine without perforation or abscess without bleeding
CPT/HCPCS: 31500; 32551; 33210; 36415; 36430; 36600; 43752; 70450; 71045; 71250; 74177; 80048; 80053; 80202; 80306; 80307; 81001; 82607; 82805; 83605; 83690; 83735; 83880; 84439; 84443; 84484; 85025; 85610; 85730; 86850; 86900; 86901; 87040; 87086; 93005; 93306; 94002; 94003; 94760; 95705; 96374; 96375; A4649; J0165; J0169; J0461; J0613; J0696; J1100; J1265; J1611; J2250; J2270; J2470; J2704; J3373; J3475; J3480; J3490; J7030; J7050; J7120; P9016; P9047; P9059

== ENCOUNTER 2025-08-23 02:11 | Emergency (ER) | payer OTHER ==
[2025-08-23] MEDS ORDERED: Norepinephrine 8 MG/0.9% NS 250 ML ONE (02:47)
[2025-08-23] MEDS ORDERED: Dextrose 50% Abboject 50 ML SYRINGE ONE ×2 (03:02→05:12)
[2025-08-23 03:18] LABS: Hematocrit 27.7 % (36.0-47.0); Hemoglobin 8.2 g/dL (12.0-16.0); Mean Corpuscular Hemoglobin 25.0 pg (27.0-31.0); Mean Corpuscular Volume 84.5 fL (78.0-98.0); Platelet Count 190 10x3/uL (130-400); Red Blood Cell (RBC) Count 3.28 mill/uL (4.20-5.40); White Blood Cell (WBC) Count 14.01 10x3/uL (4.8-10.8)
[2025-08-23 03:19] LABS: ALT (SGPT) 59 U/L (Less than 34); AST (SGOT) 115 U/L (11-34); Albumin 2.4 g/dL (3.1-4.5); Alkaline Phosphatase 96 U/L (40-110); Anion Gap 16 mmol/L (10-20); BUN (Urea Nitrogen) 31 mg/dL (9.8-20.1); Bilirubin, Total 1.4 mg/dL (0.3-1.2); CK (CPK) 1558 U/L (29-168); Calc. Creatinine Clearance 0 mL/min (70-130); Calcium 9.2 mg/dL (7.8-10.44); Carbon Dioxide 26 mmol/L (23-31); Chloride 105 mmol/L (98-107); Globulin 3.7 g/dL (2.4-3.5); Glucose 50 mg/dL (83-110); Lipase 16 U/L (8-78); Magnesium 1.8 mg/dL (1.6-2.6); Potassium 4.2 mmol/L (3.5-5.1); Sodium 143 mmol/L (136-145)
[2025-08-23 03:35] LABS: Thyroid Stimulating Hormone 5.9822 uIU/mL (0.35-4.94)
[2025-08-23 03:42] LABS: Free T4 (Free Thyroxine) 1.2 ng/dL (0.70-1.48)
[2025-08-23 03:53] LABS: Actual Bicarbonate (HCO3a) 24.6 mEq/L (22-28); Analyzer IN Cardio ER; Base Excess (BEa) -0.4 mEq/L (-2.0 to +3.0); CO2 Tension 41.5 mmHg (35.0-45.0); Calcium, Ionized (arterial) 1.22 mmol/L (1.12-1.30); Hematocrit-ABG 22 % (36.0-47.0); Hemoglobin (Hb) 7.6 g/dL (12.0-16.0); O2 Tension (PaO2), arterial 109.5 mmHg (> 60.0); Potassium - ABG Lab 3.79 mmol/L (3.70-5.30); pH, Arterial 7.390 (7.35-7.45)
[2025-08-23 03:54] LABS: ALV-art Gradient 95.305 mmHg (0-20); Puncture Site Right Brachial art
[2025-08-23 04:04] LABS: Anisocytosis SLIGHT = 6-15 cells HPF (0-5); Burr Cells MODERATE= 6-15 cells HPF (0-1); Nucleated RBC (Manual Ct) 2 % (0); Platelet Adequacy Comment Platelets Normal; Polychromasia SLIGHT = 2-3 cells HPF (0-2); Schistocytes SLIGHT = 2-5 cells HPF (0-1); Smudge Cells 4.9 %
[2025-08-23 04:50] LABS: CAUTI Indications for Culture Dysuria,urgency,freq; Glucose, Urine (Dipstick) Normal (Negative); Leukocyte Negative Leu/uL (Negative); Protein, Urine (Dipstick) 50 mg/dL (Neg-Trace); RBC/HPF 0-3 HPF (0-3); Specific Gravity, Urine 1.022 (1.002-1.036)
[2025-08-23 04:57] LABS: Bacteria/HPF 1+ HPF (None Seen)
[2025-08-23 04:58] LABS: Urine Culture Reflex No No
[2025-08-23] MEDS ORDERED: Vancomycin 1 GM/200 ML (FROZEN) BAG ONE (05:21)
[2025-08-23] MEDS ORDERED: Vasopressin In 0.9 % NaCl 100 ML ONE (05:27)
[2025-08-23] MEDS ORDERED: Iopamidol 370 76% 100 ML VIAL ONE (12:15)
== END 2025-08-23 07:01 | disposition short-term general hospital (02) ==
LOC: ERS 02:11
DX: I70.92 Chronic total occlusion of artery of the extremities (principal); K62.5 Hemorrhage of anus and rectum; R57.9 Shock, unspecified; I23.6 Thrombosis of atrium, auricular appendage, and ventricle as current complications following acute myocardial infarction
CPT/HCPCS: 36600; 70450; 71260; 75635; 81001; 82550; 82805; 82962; 83605; 83690; 83735; 84439; 84484; 86850; 86900; 86901; 87040; 87428; 93005; J2543; J3373; J7999; Q9967; 36416; 36556; 80053; 84443; 85025; 96365; 96366; 96367; 96368; 96374; 96375